=== PATIENT | female | born 1985 | race Caucasian/White ===

== ENCOUNTER 2017-02-01 17:04 | Emergency (ER) | payer OTHER ==
[2017-02-01 17:12] VITALS: BP 124/67
[2017-02-01] MEDS ORDERED: Sulfamethox/Trimethoprim DS 800/160* TAB PO ONE (17:23)
--- NOTE | 2017-02-01 17:23 | UC ---
Skin Complaint HPI - HPI Summary HPI Summary: right middle finger is red painful and swollen distally with some streakingin finger - History of Current Complaint Chief Complaint: UCSkin Time Seen by Provider: 02/01/17 17:18 Stated Complaint: FINGER SWELLING,INFLAMED Hx Obtained From: Patient Hx Last Menstrual Period: T-28 ?: No Onset/Duration: Gradual Onset, Lasting Days - 5, Still Present Timing: Constant Onset Severity: Moderate Current Severity: Moderate Location: Diffuse - right middle finger Character: Pain, Redness Aggravating: Touch Alleviating: Treatment [employer]: - charcoal Associated Signs & Symptoms: Positive: Red Streaks - Allergy/Home Medications Allergies/Adverse Reactions: Allergies Allergy/AdvReac Type Severity Reaction Status Date / Time Penicillins [PCN] Allergy Rash Verified 02/04/16 18:59 Review of Systems Constitutional: Negative Skin: Negative, Other - erythema right 3rd finger, tender to touch Eyes: Negative ENT: Negative Respiratory: Negative Cardiovascular: Negative Gastrointestinal: Negative Genitourinary: Negative Motor: Negative Neurovascular: Negative Musculoskeletal: Arthralgia - right third finger Neurological: Negative Psychological: Negative All Other Systems Reviewed And Are Negative: Yes PMH/Surg Hx/FS Hx/Imm Hx Previously Healthy: Yes - Surgical History Surgical History: Yes Surgery Procedure, Year, and Place: LEEP; wisdom teeth - Family History Known Family History: Positive: Hypertension, Diabetes, Other - NONCONTRIBUTROY Negative: Cardiac Disease, Renal Disease - Social History Occupation: Employed Full-time Lives: With Family Alcohol Use: Rare Alcohol Amount: 3/WEEK Substance Use Type: None Smoking Status (MU): Light Every Day Tobacco Smoker Type: Cigarettes Amount Used/How Often: 1 CIG/DAY Have You Smoked in the Last Year: Yes When Did the Patient Quit Smoking/Using Tobacco: 8 mos ago Household Exposure Type: Cigarettes - Immunization History Most Recent Influenza Vaccination: no Most Recent Tetanus Shot: UNKNOWN Physical Exam Triage Information Reviewed: Yes Appearance: Well-Appearing, No Pain Distress, Well-Nourished Vital Signs: Initial Vital Signs Temp 99.0 F 02/01/17 17:08 Pulse 67 02/01/17 17:08 Resp 18 02/01/17 17:08 BP 124/67 02/01/17 17:08 Pulse Ox 99 02/01/17 17:08 Vital Signs Reviewed: Yes Eye Exam: Normal Eyes: Positive: Conjunctiva Clear ENT Exam: Normal ENT: Positive: Normal ENT inspection, Hearing grossly normal. Negative: Nasal congestion, Nasal drainage, Trismus, Muffled/hoarse voice Dental Exam: Normal Neck exam: Normal Neck: Positive: Supple, Nontender Respiratory Exam: Normal Respiratory: Positive: Chest non-tender, No respiratory distress, No accessory muscle use Cardiovascular Exam: Normal Cardiovascular: Positive: RRR, Pulses Normal, Brisk Capillary Refill Musculoskeletal Exam: Normal Musculoskeletal: Positive: Strength Intact, ROM Intact, Edema @ - distart right third finger Neurological Exam: Normal Neurological: Positive: Alert Psychological Exam: Normal Skin Exam: Normal Skin: Positive: Other - paronychia right third finger with some lymph streaking to mcp Course/Dx - Course Course Of Treatment: warm soaks, soap and water wash, bactrim follow with pcp - Differential Diagnoses - Skin Complaint Differential Diagnoses: Cellulitis, Impetigo, Lymphangitis, Other - paronychia - Diagnoses Provider Diagnoses: paronychia with lymph streaking right third finger Discharge - Discharge Plan Condition: Stable Disposition: HOME Prescriptions: Sulfamethox/Trimethoprim DS* [Bactrim DS 800/160 TAB*] 1 tab PO BID #13 tab Patient Education Materials: Paronychia (ED), Warm Compress or Soak (ED) Referrals: [facility] [Outside] - If Needed
== END 2017-02-01 17:35 | disposition home or self-care (01) ==
LOC: UCEAST 17:04
DX: L03.021 Acute lymphangitis of right finger (principal); Z88.0 Allergy status to penicillin; F17.210 Nicotine dependence, cigarettes, uncomplicated
CPT/HCPCS: 99212; A9270-GY; G0463

== ENCOUNTER 2017-07-02 15:14 | Emergency (ER) | payer OTHER ==
[2017-07-02 19:00] LABS: ABS Basophils 0 10^3/ul (0-0.2); ABS Eosinophils 0.1 10^3/ul (0-0.6); ABS Lymphocytes 2.5 10^3/ul (1.0-4.8); ABS Monocytes 0.6 10^3/ul (0-0.8); ABS Neutrophils 4.1 10^3/ul (1.5-7.7); ABS Nucleated RBC 0 10^3/ul; Eosinophil % 1.3 % (0-6); Hematocrit 42 % (35-47); Hemoglobin 14.3 g/dl (12.0-16.0); Lymphocyte % 33.9 % (25-47); Mean Corpuscular HGB Conc 34 g/dl (31-36); Mean Corpuscular Hemoglobin 28 pg (27-31); Mean Corpuscular Volume 84 fL (80-97); Mean Platelet Volume 9 um3 (7.4-10.4); Nucleated Red Blood Cells % 0.1; Platelet Count 246 10^3/ul (150-450); Red Blood Count 5.06 10^6/ul (4.0-5.4); Red Cell Distribution Width 13 % (10.5-15); White Blood Count 7.3 10^3/ul (3.5-10.8)
--- NOTE | 2017-07-02 19:14 | RAD ---
INDICATION: Chest pain COMPARISON: April 02, 2016 TECHNIQUE: An AP portable view obtained at 1858 hours is submitted. FINDINGS: Bones/Soft Tissues: There are no acute bony findings. Cardiomediastinal: The cardiomediastinal silhouette is normal. Lungs: There are no infiltrates. Pleura: There are no pleural effusions. Other: None IMPRESSION: NO ACTIVE DISEASE
[2017-07-02 19:16] LABS: EGFR Non-African American 91.5 (>60)
--- NOTE | 2017-07-02 20:55 | ED ---
Tristin Omalley Stephanie, scribed for Alec Carrillo MD on 07/02/17 at 1814 . HPI Chest Pain - HPI Summary HPI Summary: The pt is a 31 y/o F presenting to the ED with c/o CP that began on 06/29/17. The CP is described as a sharp pressure. Symptoms include convulsions, confusion , loss of energy, back pain, SOB, shakes, and rapid HR. She denies nausea, fever, and diaphoresis. The pt rates her pain as a 7 in severity. The pt reports having a history of gallbladder problems for the past few years and found that intermittent fasting helps. She attempted a water fast with micronutrient supplementation when the symptoms began. The pt reports history of CP paired with panic attacks. - History of Current Complaint Chief Complaint: EDChestPainROMI Time Seen by Provider: 07/02/17 17:36 Hx Obtained From: Patient Hx Last Menstrual Period: T-28 Onset/Duration: Started Days Ago - 3 Timing: Constant Current Severity: Moderate Pain Intensity: 7 Pain Scale Used: 0-10 Numeric Chest Pain Radiates To:: Back Character: Pressure/Squeezing, Sharp/Stabbing Aggravating Factor(s): Nothing Alleviating Factor(s): Nothing Associated Signs and Symptoms: Positive: Shortness of Breath, Back Pain, Other: - convulsions, confusion, loss of energy, shakes and rapid HR. - Allergy/Home Medications Allergies/Adverse Reactions: Allergies Allergy/AdvReac Type Severity Reaction Status Date / Time Penicillins [PCN] Allergy Rash Verified 07/02/17 15:17 PMH/Surg Hx/FS Hx/Imm Hx Endocrine/Hematology History: Reports: Hx Thyroid Disease - hypo Denies: Hx Diabetes Cardiovascular History: Denies: Hx Hypertension Respiratory History: Denies: Hx Asthma, Hx Chronic Obstructive Pulmonary Disease (COPD) GI History: Reports: Hx Ulcer - 2006 Sensory History: Denies: Hx Legally Blind EENT History: Denies: Hx Deafness - Surgical History Surgery Procedure, Year, and Place: LEEP; wisdom teeth - Immunization History Date of Tetanus Vaccine: unknown Infectious Disease History: No Infectious Disease History: Denies: Hx Clostridium Difficile, Hx Hepatitis, Hx Human Immunodeficiency Virus (HIV), Hx of Known/Suspected MRSA, Hx Shingles, Hx Tuberculosis, Hx Known/ Suspected VRE, Hx Known/Suspected VRSA, History Other Infectious Disease, Traveled Outside the [place] in Last 30 Days - Family History Known Family History: Positive: Hypertension, Diabetes, Other - NONCONTRIBUTROY Negative: Cardiac Disease, Renal Disease - Social History Occupation: Employed Full-time Lives: Alone Alcohol Use: Rare Alcohol Amount: 3/WEEK Substance Use Type: Reports: None Hx Tobacco Use: No Smoking Status (MU): Light Every Day Tobacco Smoker Type: Cigarettes Amount Used/How Often: 1 CIG/DAY Have You Smoked in the Last Year: Yes Review of Systems Positive: Other - loss of energy, shakes. Negative: Fever, Skin Diaphoresis Positive: Other - rapid HR Positive: Shortness Of Breath Negative: Nausea Positive: Other - back pain Neurological: Other - convulsions, confusion All Other Systems Reviewed And Are Negative: Yes Physical Exam - Summary Physical Exam Summary: General: well-appearing, no pain distress Skin: warm, color reflects adequate perfusion, dry Head: normal Eyes: EOMI, [place] ENT: normal Neck: supple, nontender Respiratory: CTA, breath sounds present Cardiovascular: RRR Abdomen: soft, nontender Bowel: present Musculoskeletal: normal, strength/ROM intact Neurological: normal, sensory/motor intact, A&O x3 Psychological: affect/mood appropriate Triage Information Reviewed: Yes Vital Signs On Initial Exam: Initial Vitals Temp Pulse Resp BP Pulse Ox 98.9 F 74 16 137/88 100 07/02/17 15:18 07/02/17 15:18 07/02/17 15:18 07/02/17 15:18 07/02/17 15:18 Vital Signs Reviewed: Yes - [place] Coma Scale Coma Scale Total: 15 Diagnostics - Vital Signs Vital Signs Temp Pulse Resp BP Pulse Ox 07/02/17 17:30 65 18 135/87 100 07/02/17 17:21 73 99 07/02/17 17:18 141/89 07/02/17 15:18 98.9 F 74 16 137/88 100 - Laboratory Lab Results: Lab Results 07/02/17 07/02/17 07/02/17 Range/Units 18:30 18:30 18:30 WBC 7.3 (3.5-10.8) 10^3/ul RBC 5.06 (4.0-5.4) 10^6/ul Hgb 14.3 (12.0-16.0) g/dl Hct 42 (35-47) % MCV 84 (80-97) fL MCH 28 (27-31) pg MCHC 34 (31-36) g/dl RDW 13 (10.5-15) % Plt Count 246 (150-450) 10^3/ul MPV 9 (7.4-10.4) um3 Neut % (Auto) 56.5 (38-83) % Lymph % (Auto) 33.9 (25-47) % [place] % (Auto) 7.6 (1-9) % Eos % (Auto) 1.3 (0-6) % Baso % (Auto) 0.7 (0-2) % Absolute Neuts (auto) 4.1 (1.5-7.7) 10^3/ul Absolute Lymphs (auto) 2.5 (1.0-4.8) 10^3/ul Absolute Monos (auto) 0.6 (0-0.8) 10^3/ul Absolute Eos (auto) 0.1 (0-0.6) 10^3/ul Absolute Basos (auto) 0 (0-0.2) 10^3/ul Absolute Nucleated RBC 0 10^3/ul Nucleated RBC % 0.1 D-Dimer, Quantitative (Less Than 230) ng/mL Sodium 137 (133-145) mmol/L Potassium 4.0 (3.5-5.0) mmol/L Chloride 103 (101-111) mmol/L Carbon Dioxide 28 (22-32) mmol/L Anion Gap 6 (2-11) mmol/L BUN 17 (6-24) mg/dL Creatinine 0.74 (0.51-0.95) mg/dL Est GFR ( Amer) 117.7 (>60) Est GFR (Non-Af Amer) 91.5 (>60) BUN/Creatinine Ratio 23.0 H (8-20) Glucose 98 (70-100) mg/dL Lactic Acid 0.8 (0.5-2.0) mmol/L Calcium 10.1 (8.6-10.3) mg/dL Magnesium 1.7 L (1.9-2.7) mg/dL Total Bilirubin 0.40 (0.2-1.0) mg/dL AST 11 L (13-39) U/L ALT 15 (7-52) U/L Alkaline Phosphatase 57 (34-104) U/L Troponin I 0.01 (<0.04) ng/mL Total Protein 7.0 (6.4-8.9) g/dL Albumin 4.4 (3.2-5.2) g/dL Globulin 2.6 (2-4) g/dL Albumin/Globulin Ratio 1.7 (1-3) Lipase 100 H (11.0-82.0) U/L TSH < 0.01 L (0.34-5.60) mcIU/mL Free T4 0.53 L (0.61-1.12) ng/dL Total T3 0.97 (0.87-1.78) ng/mL Beta HCG, Quant < 0.60 mIU/mL 07/02/17 Range/Units 18:30 WBC (3.5-10.8) 10^3/ul RBC (4.0-5.4) 10^6/ul Hgb (12.0-16.0) g/dl Hct (35-47) % MCV (80-97) fL MCH (27-31) pg MCHC (31-36) g/dl RDW (10.5-15) % Plt Count (150-450) 10^3/ul MPV (7.4-10.4) um3 Neut % (Auto) (38-83) % Lymph % (Auto) (25-47) % [place] % (Auto) (1-9) % Eos % (Auto) (0-6) % Baso % (Auto) (0-2) % Absolute Neuts (auto) (1.5-7.7) 10^3/ul Absolute Lymphs (auto) (1.0-4.8) 10^3/ul Absolute Monos (auto) (0-0.8) 10^3/ul Absolute Eos (auto) (0-0.6) 10^3/ul Absolute Basos (auto) (0-0.2) 10^3/ul Absolute Nucleated RBC 10^3/ul Nucleated RBC % D-Dimer, Quantitative 375 H (Less Than 230) ng/mL Sodium (133-145) mmol/L Potassium (3.5-5.0) mmol/L Chloride (101-111) mmol/L Carbon Dioxide (22-32) mmol/L Anion Gap (2-11) mmol/L BUN (6-24) mg/dL Creatinine (0.51-0.95) mg/dL Est GFR ( Amer) (>60) Est GFR (Non-Af Amer) (>60) BUN/Creatinine Ratio (8-20) Glucose (70-100) mg/dL Lactic Acid (0.5-2.0) mmol/L Calcium (8.6-10.3) mg/dL Magnesium (1.9-2.7) mg/dL Total Bilirubin (0.2-1.0) mg/dL AST (13-39) U/L ALT (7-52) U/L Alkaline Phosphatase (34-104) U/L Troponin I (<0.04) ng/mL Total Protein (6.4-8.9) g/dL Albumin (3.2-5.2) g/dL Globulin (2-4) g/dL Albumin/Globulin Ratio (1-3) Lipase (11.0-82.0) U/L TSH (0.34-5.60) mcIU/mL Free T4 (0.61-1.12) ng/dL Total T3 (0.87-1.78) ng/mL Beta HCG, Quant mIU/mL Result Diagrams: 07/02/17 18:30 07/02/17 18:30 Lab Statement: Any lab studies that have been ordered have been reviewed, and results considered in the medical decision making process. - Radiology CXR Xray Interpretation: No Acute Changes Radiology Interpretation Completed By: Radiologist - NO ACTIVE DISEASE - EKG 15:25 EKG Rhythm: Sinus Rhythm - [address] Segment: Normal Ectopy: None EKG Interpretation: Normal EKG Chest Pain Course/Dx - Course Course Of Treatment: Medications reviewed. DISCUSSED RESULTS WITH PATIENT TO INCLUDE LOW TSH/MAGNESIUM AND ELEVATED DDIMER. PATIENT WILL STOP HER THYROID SUPPLEMENTS AND TAKE PO MAGNESIUM. RISK FOR PE IS LOW; NOT A SMOKER, NO FAMILY HX, NO CALF PAIN/SWELLING, NO RECENT LONG TRIPS. THIS AND GETTING A CTA CHEST WAS DISCUSSED WITH THE PATIENT; AT THIS TIME PATIENT PREFERS NO CTA. WE DISCUSSED S/SX OF PE AND THE NEED TO RETURN TO THE ED RIGHT AWAY WITH ANY WORSENING OF HER CONDITION. NO CRITICAL CARE TIME. - Diagnoses Provider Diagnoses: Chest pain, Hyperthyroidism, Hypomagnesemia Discharge - Discharge Plan Condition: Stable Disposition: HOME Patient Education Materials: Hyperthyroidism (ED), Hypomagnesemia (ED) Referrals: Chuyita Ojeda MD [Primary Care Provider] - Additional Instructions: FOLLOW UP WITH YOUR DOCTOR. YOUR HYPERTHYROIDISM IS MOST PROBABLY DUE TO YOUR THYROID MEDICATIONS. STOP TAKING THYROID SUPPLEMENTS UNTIL AFTER HAVING YOUR THYROID RECHECKED. RETURN TO THE EMERGENCY DEPARTMENT FOR ANY WORSENING OF YOUR CONDITION; CHEST PAIN, SHORTNESS OF BREATH, YOU FEEL LIKE PASSING OUT, YOU FEEL ILL OR QUESTIONS OR CONCERNS. The documentation as recorded by the Tristin perry Stephanie accurately reflects the service I personally performed and the decisions made by me, Alec Carrillo MD.
[2017-07-02 21:08] VITALS: BP 128/82
== END 2017-07-02 21:08 | disposition home or self-care (01) ==
LOC: ED 15:14
DX: R07.9 Chest pain, unspecified (principal); E05.90 Thyrotoxicosis, unspecified without thyrotoxic crisis or storm; E83.42 Hypomagnesemia; R06.02 Shortness of breath; M54.9 Dorsalgia, unspecified; R41.0 Disorientation, unspecified; F17.210 Nicotine dependence, cigarettes, uncomplicated
CPT/HCPCS: 36415; 71045; 80053; 83605; 83690; 83735; 83930; 84439; 84443; 84479; 84484; 84702; 85025; 85379; 93005; 99283